=== PATIENT | male | born 1995 | race African-American/Black ===

== ENCOUNTER 2019-02-27 20:07 | Emergency (ER) | payer OTHER ==
[2019-02-27] MEDS ORDERED: predniSONE 20 MG TAB ONE (20:42)
[2019-02-27] MEDS ORDERED: LEVALBUTEROL 1.25 MG/3 ML NEB ONE (20:42)
[2019-02-27] MEDS ORDERED: IBUPROFEN 400 MG TAB ONE (20:42)
--- NOTE | 2019-02-27 21:03 | RAD REPORT ---
EXAM DESCRIPTION: RAD - Chest Pa And Lat (2 Views) - 02/27/2019 8:51 pm CLINICAL HISTORY: Cough;Chest pain COMPARISON: None. TECHNIQUE: PA and lateral views of the chest were obtained. FINDINGS: The lungs are clear. Heart size is normal and central vasculature is within normal limit s. No pleural effusion or pneumothorax seen. No acute bony finding noted. No aortic abnormality. IMPRESSION: No acute cardiopulmonary process.
--- NOTE | 2019-02-27 21:47 | ER ---
Nurse's Notes [facility] Name: Enrique Andrew Jr Age: 23 yrs Sex: Male : 1995 Arrival Date: 02/27/2019 Time: 20:13 Bed 23 Private MD: Diagnosis: Mild intermittent asthma with (acute) exacerbation;Pleurisy;Acute sinusitis, unspecified Presentation: 02/27 20:17 Presenting complaint: Patient states: Chest pain on breathing, pain with cough x 3 lp1 days; Last Albuterol neb taken yesterday;. Transition of care: patient was not received from another setting of care. Onset of symptoms was February 27, 2019. Risk Assessment: Do you want to hurt yourself or someone else? Patient reports no desire to harm self or others. Initial Sepsis Screen: Does the patient meet any 2 criteria? No. Patient's initial sepsis screen is negative. Does the patient have a suspected source of infection? No. Patient's initial sepsis screen is negative. Care prior to arrival: None. 20:17 Method Of Arrival: Ambulatory lp1 20:17 Acuity: ELEONORA 3 lp1 Historical: - Allergies: 20:18 No Known Allergies; lp1 - Home Meds: 20:18 Albuterol Nebulizer [Active]; lp1 - PMHx: 20:18 Asthma; lp1 - PSHx: 20:18 None; lp1 - Immunization history:: Adult Immunizations up to date. - Social history:: Smoking status: Patient/guardian denies using tobacco. - Ebola Screening: : No symptoms or risks identified at this time. - Family history:: not pertinent. - Hospitalizations: : No recent hospitalization is reported. Screenin:00 Abuse screen: Denies threats or abuse. Denies injuries from another. Nutritional mg2 screening: No deficits noted. Tuberculosis screening: No symptoms or risk factors identified. Fall Risk None identified. Assessment: 20:57 General: Appears in no apparent distress. comfortable, Behavior is calm, cooperative. mg2 Pain: Complains of pain in chest Pain does not radiate. Pain currently is 3 out of 10 on a pain scale. Quality of pain is described as aching, Pain began gradually, Is intermittent. Neuro: Level of Consciousness is awake, alert, obeys commands, Oriented to person, place, time, situation. Cardiovascular: Capillary refill < 3 seconds Patient's skin is warm and dry. Respiratory: Reports shortness of breath cough that is Airway is patent Respiratory effort is even, unlabored, Respiratory pattern is regular, symmetrical. Respiratory: Breath sounds are clear bilaterally. in right upper lobe and left upper lobe. GI: No signs and/or symptoms were reported involving the gastrointestinal system. : No signs and/or symptoms were reported regarding the genitourinary system. EENT: No signs and/or symptoms were reported regarding the EENT system. Derm: Skin is intact, is healthy with good turgor, Skin is pink, warm \T\ dry. normal. Musculoskeletal: Circulation, motion, and sensation intact. Capillary refill < 3 seconds. Vital Signs: 20:17 BP 152 / 92; Pulse 72; Resp 18; Temp 101.1(O); Pulse Ox 98% on R/A; Weight 72.57 kg lp1 (R); Height 6 ft. 0 in. (182.88 cm); Pain 8/10; 21:01 BP 125 / 71; Pulse 69; Resp 18; Pulse Ox 100% on Nebulizer Mask; mg2 21:52 BP 143 / 74; Pulse 75; Resp 18; Temp 100(O); Pulse Ox 100% on R/A; mg2 20:17 Body Mass Index 21.70 (72.57 kg, 182.88 cm) lp1 ED Course: 20:13 Patient arrived in ED. cf2 20:17 Triage completed. lp1 20:18 Arm band placed on right wrist. lp1 20:28 Fabiano Holman MD is Attending Physician. rn 20:36 Albin Hollingsworth RN is Primary Nurse. mg2 20:50 XRAY Chest Pa And Lat (2 Views) In Process Unspecified. EDMS 21:00 No provider procedures requiring assistance completed. Patient did not have IV access mg2 during this emergency room visit. Patient maintains SpO2 saturation greater than 95% on room air. 21:01 Patient has correct armband on for positive identification. Pulse ox on. NIBP on. mg2 Administered Medications: 20:47 Drug: Motrin 800 mg Route: PO; mg2 21:51 Follow up: Response: No adverse reaction; Marked relief of symptoms mg2 20:47 Drug: predniSONE 60 mg Route: PO; mg2 21:52 Follow up: Response: No adverse reaction mg2 20:47 Drug: Xopenex (3) 1.25 mg Route: Inhalation; mg2 21:51 Follow up: Response: No adverse reaction mg2 21:51 Drug: Zithromax 500 mg Route: PO; mg2 21:51 Follow up: Response: No adverse reaction; Medication administered at discharge. mg2 Outcome: 21:46 Discharge ordered by . rn 21:52 Discharged to home ambulatory, with family. mg2 21:52 Condition: stable 21:52 Discharge instructions given to patient, family, Instructed on discharge instructions, follow up and referral plans. medication usage, Demonstrated understanding of instructions, follow-up care, medications, Prescriptions given X 3. 21:58 Patient left the ED. mg2 Signatures: Dispatcher [employer] EDMS Fabiano Holman MD MD rn Pena, Laura, RN RN lp1 Albin Hollingsworth RN RN mg2 Ej Randhawa cf2 Corrections: (The following items were deleted from the chart) 21:53 21:52 Pulse 75bpm; Resp 18bpm; Pulse Ox 100% RA; Temp 100F Oral; mg2 mg2
--- NOTE | 2019-02-27 21:47 | EDPHYS ---
Physician Documentation [facility] Name: Enrique Andrew Jr Age: 23 yrs Sex: Male : 1995 Arrival Date: 02/27/2019 Time: 20:13 Bed 23 Private MD: ED Physician Fabiano Holman HPI: 02/27 21:06 This 23 yrs old Black Male presents to ER via Ambulatory with complaints of Chest Pain, rn Breathing Difficulty, Cough. 21:06 The patient or guardian reports chest pain that is located primarily in the anterior rn chest wall. The pain does not radiate. Associated signs and symptoms: Pertinent positives: cough, shortness of breath, Pertinent negatives: abdominal pain, near syncope, palpitations, recent travel, syncope. The chest pain is described as sharp, stabbing. Duration: The patient or guardian reports multiple episodes, that are intermittent. Modifying factors: The symptoms are alleviated by nothing. the symptoms are aggravated by deep breath. Severity of pain: At its worst the pain was mild in the emergency department the pain is unchanged. The patient has experienced similar episodes in the past. Reports hx of asthma, recently with fever/cough/fatigue, + second-hand smoke, reports mild SOB and wheezing. No trauma. NO recent surgery or hx of DVT/PE.. Historical: - Allergies: 20:18 No Known Allergies; lp1 - Home Meds: 20:18 Albuterol Nebulizer [Active]; lp1 - PMHx: 20:18 Asthma; lp1 - PSHx: 20:18 None; lp1 - Immunization history:: Adult Immunizations up to date. - Social history:: Smoking status: Patient/guardian denies using tobacco. - Ebola Screening: : No symptoms or risks identified at this time. - Family history:: not pertinent. - Hospitalizations: : No recent hospitalization is reported. ROS: 21:06 Constitutional: + fever and chills Eyes: Negative for injury, pain, redness, and pattern assembler, Neck: Negative for injury, pain, and swelling, Cardiovascular: Negative for chest pain, palpitations, and edema, Respiratory: + for shortness of breath, cough, wheezing, and pleuritic chest pain, Abdomen/GI: Negative for abdominal pain, nausea, vomiting, diarrhea, and constipation, MS/Extremity: Negative for injury and deformity, Skin: Negative for injury, rash, and discoloration, Neuro: Negative for numbness, tingling, and seizure. Exam: 21:06 Constitutional: This is a well developed, well nourished patient who is awake, alert, rn and in no acute distress. Head/Face: Normocephalic, atraumatic. Eyes: Pupils equal round and reactive to light, extra-ocular motions intact. Periorbital areas with no swelling, redness, or edema. ENT: No oral swelling, no stridor Cardiovascular: Regular rate and rhythm. No murmur. No pulse deficits. Respiratory: + diffuse exp wheezing, no retractions, speaking full sentences. Abdomen/GI: soft, non-tender MS/ Extremity: Pulses equal, no cyanosis. Neurovascular intact. Full, normal range of motion. Equal circumference. Neuro: Awake and alert, GCS 15, oriented to person, place, time, and situation. Cranial nerves II-XII grossly intact. Motor strength 5/5 in all extremities. Sensory grossly intact. Cerebellar exam normal. Normal gait. Vital Signs: 20:17 BP 152 / 92; Pulse 72; Resp 18; Temp 101.1(O); Pulse Ox 98% on R/A; Weight 72.57 kg lp1 (R); Height 6 ft. 0 in. (182.88 cm); Pain 8/10; 21:01 BP 125 / 71; Pulse 69; Resp 18; Pulse Ox 100% on Nebulizer Mask; mg2 21:52 BP 143 / 74; Pulse 75; Resp 18; Temp 100(O); Pulse Ox 100% on R/A; mg2 20:17 Body Mass Index 21.70 (72.57 kg, 182.88 cm) lp1 MDM: 20:28 Patient medically screened. rn 21:45 Differential diagnosis: chest wall pain, costochondritis, pericarditis, pneumonia, rn pneumothorax. Data reviewed: vital signs, nurses notes, lab test result(s), radiologic studies, plain films, and as a result, I will discharge patient. Test interpretation: by ED physician or midlevel provider: plain radiologic studies, CXR neg for acute infiltrate. Counseling: I had a detailed discussion with the patient and/or guardian regarding: the historical points, exam findings, and any diagnostic results supporting the discharge/admit diagnosis, lab results, radiology results, the need for outpatient follow up, to return to the emergency department if symptoms worsen or persist or if there are any questions or concerns that arise at home. Response to treatment: the patient's symptoms have mildly improved after treatment, and as a result, I will discharge patient. Special discussion: I discussed with the patient/guardian in detail that at this point there is no indication for admission to the hospital. It is understood, however, that if the symptoms persist or worsen the patient needs to return immediately for re-evaluation. 02/27 20:36 Order name: Flu; Complete Time: 21: rn 02/27 20:36 Order name: Strep; Complete Time: : rn 02/27 20:36 Order name: XRAY Chest Pa And Lat (2 Views); Complete Time: : rn 02/27 21:11 Order name: Throat Culture EDMS Administered Medications: 20:47 Drug: Motrin 800 mg Route: PO; mg2 21:51 Follow up: Response: No adverse reaction; Marked relief of symptoms mg2 20:47 Drug: predniSONE 60 mg Route: PO; mg2 21:52 Follow up: Response: No adverse reaction mg2 20:47 Drug: Xopenex (3) 1.25 mg Route: Inhalation; mg2 21:51 Follow up: Response: No adverse reaction mg2 21:51 Drug: Zithromax 500 mg Route: PO; mg2 21:51 Follow up: Response: No adverse reaction; Medication administered at discharge. mg2 Disposition: 02/27/19 21:46 Discharged to Home. Impression: Mild intermittent asthma with (acute) exacerbation, Pleurisy, Acute sinusitis, unspecified. - Condition is Stable. - Discharge Instructions: Pleurisy, Asthma, Acute Bronchospasm, Secondhand Smoke. - Prescriptions for Prednisone 20 mg Oral Tablet - take 3 tablet by ORAL route once daily for 5 days; 15 tablet. Zithromax Z- Lobo 250 mg Oral Tablet - take 1 tablet by ORAL route as directed for 5 days Day 1 - take two (2) tablets one time. Day 2, 3, 4 , 5 take one (1) tablet once daily.; 6 tablet. Albuterol Sulfate 90 mcg/actuation - inhale 1-2 puff by INHALATION route every 4-6 hours; 1 Inhaler. - Medication Reconciliation Form, Thank You Letter, Antibiotic Education, Prescription Opioid Use, Work release form form. - Follow up: Private Physician; When: As needed; Reason: Recheck today's complaints, Re-evaluation by your physician. - Problem is new. - Symptoms have improved. Signatures: Dispatcher [employer] EDFabiano Hurtado MD MD rn Celia Schneider RN RN lp1 Albin Hollingsworth RN RN mg2 Corrections: (The following items were deleted from the chart) 21:58 21:46 02/27/2019 21:46 Discharged to Home. Impression: Mild intermittent asthma with mg2 (acute) exacerbation; Pleurisy; Acute sinusitis, unspecified. Condition is Stable. Forms are Medication Reconciliation Form, Thank You Letter, Antibiotic Education, Prescription Opioid Use. Follow up: Private Physician; When: As needed; Reason: Recheck today's complaints, Re-evaluation by your physician. Problem is new. Symptoms have improved. rn
[2019-02-27] MEDS ORDERED: AZITHROMYCIN 250 MG TAB ONE (21:53)
[2019-02-28 01:03] VITALS: O2SAT 100
[2019-02-28 01:04] VITALS: BP 143/74; TEMP 100
== END 2019-02-27 21:58 | disposition home or self-care (01) ==
LOC: ER 20:07
DX: J45.21 Mild intermittent asthma with (acute) exacerbation (principal); R09.1 Pleurisy; J01.90 Acute sinusitis, unspecified
CPT/HCPCS: 87070; 87081; 87804 ×2; 71046; 99285; J7512